=== PATIENT | female | born 1995 | race Caucasian/White ===

== ENCOUNTER → 2020-06-13 16:27 | Outpatient (CLI) | payer BC, SELFPAY ==
[2020-06-13 17:00] LABS: Add Manual Diff / Slide Review NO; Basophils Absolute Auto 0 /uL (0-100); Basophils Percent Auto 0.3 % (0-2); Eosinophils Absolute Auto 200 /uL (0-450); Eosinophils Percent Auto 1.5 % (2-4); Hematocrit 35.3 % (36-46); Lymphocytes Absolute Auto 2100 /uL (1100-4500); Lymphocytes Percent Auto 21.6 % (25-40); Mean Corpuscular HGB Conc 34.1 % (30-36); Mean Corpuscular Hemoglobin 29.5 PG (26-34); Mean Corpuscular Volume 86.5 fL (80-100); Monocytes Absolute Auto 600 /uL (0-900); Monocytes Percent Auto 5.8 % (3-14); Neutrophils Absolute Auto 7000 /uL (1500-7000); Neutrophils Percent Auto 70.8 % (50-75); Platelet Count 342 X10^3/uL (150-400); Red Blood Cell Count 4.08 X10^6/uL (4.0-5.2); White Blood Cell Count 9.8 X10^3/uL (4.5-11.0)
[2020-06-13 17:03] LABS: Appearance Urine UA SL CLOUDY; Bilirubin Urine UA NEGATIVE (NEGATIVE); Color Urine UA YELLOW; Glucose Urine UA NEGATIVE (Negative); Ketones Urine UA TRACE (NEGATIVE); Leukocyte Esterase Urine UA NEGATIVE (NEGATIVE); Nitrite Urine UA NEGATIVE (Negative); Occult Blood Urine UA NEGATIVE (Negative); Protein Urine UA NEGATIVE (Negative); Specific Gravity Urine UA 1.025 (1.000-1.035); Urobilinogen Urine UA 0.2 E.U./dL (0.2)
[2020-06-14 07:39] LABS: RPR Screen Non Reactive (Non Reactive)
[2020-06-14 10:08] LABS: Varicella IgG Antibody <135 index (Immune >165)
[2020-06-14 11:43] LABS: Hepatitis B Surface Antigen NEGATIVE s/c (NEGATIVE); Rubella Antibody IgG 3.7 IU/mL (>15)
[2020-06-14 12:00] LABS: HIV 1 & 2 Ab/Ag 4th Gen Combo NEGATIVE (NEGATIVE); Hep C Virus Ab w/Reflex Quant NEGATIVE s/c (NEGATIVE)
== END ==
PROVIDERS: Referring Provider Obstetrics & Gynecology; Visit Provider Obstetrics & Gynecology
DX: Z34.81 Encounter for supervision of other normal pregnancy, first trimester (principal)
CPT/HCPCS: 36415; 80055; 81003; 86787; 86803; 86850; 86900; 86901; 87086; 87147; 87389

== ENCOUNTER → 2020-07-11 08:20 | Outpatient (CLI) | payer BC, SELFPAY ==
[2020-07-13 20:49] LABS: AFP, Serum 40.6 ng/mL (.); Calc Gestational Age Ultrasound (.); Estriol, Free 1.24 ng/mL (.); Inhibin A, Dimeric 118.01 pg/mL (.); Maternal Ethnicity Caucasian (.); Maternal Weight 111 lbs (.); Number of Fetuses No (.); OSBR Risk 1 IN 10000 (.); Results Report (.); Test Results *Screen Negative* (.); hCG, MoM 1.21 (.); hCG, Serum 50800 mIU/mL (.)
== END ==
PROVIDERS: Referring Provider Obstetrics & Gynecology; Visit Provider Obstetrics & Gynecology
DX: Z34.90 Encounter for supervision of normal pregnancy, unspecified, unspecified trimester (principal); Z3A.16 16 weeks gestation of pregnancy
CPT/HCPCS: 36415; 82105; 82677; 84702; 86336

== ENCOUNTER → 2020-08-08 12:38 | Outpatient (CLI) | payer BC, SELFPAY ==
--- NOTE | 2020-08-08 12:39 | DI.US.S_ITS ---
PROCEDURE: US OB >= 14 WEEKS FETUS INDICATIONS: ANATOMY OUTSIDE/PRIOR DATING DATA: Last menstrual period (LMP): 03/15/2020. LMP-based estimated date of delivery (LISA): 12/21/2019 . First dating scan (date and location): 06/13/2020 . Estimated date of delivery (LISA) from first dating scan: 12/16/2020 . TECHNIQUE: Real-time scanning was performed of the fetus, with image documentation and biometric measurements. Endovaginal scanning: No COMPARISON: [facility], , OB >= 14 WEEKS FETUS, 07/11/2020, 8:11. FINDINGS: General: A single living intrauterine gestation is present. Presentation: Variable. Placenta: Placental position is posterior , without previa. Amniotic fluid index: 12.8 cm, normal range is 5-24 cm. heart rate: 145 beats per minute. Maternal cervical canal: 3.1 cm long. Normal lower limit is 2.5 cm. biometrics: Biparietal diameter: 22 weeks 4 days Head circumference: 21 weeks 6 days Abdominal circumference: 22 weeks Femur length: 20 weeks 6 days Estimated gestational age from initial scan: 21 weeks 3 days Composite gestational age from present scan: 21 weeks 6 days Estimated weight and percentile: 436 g; 53rd percentile Measurement variability for biometric dating: +/- 7 days from 14 weeks to 15 weeks 6 days gestation, +/- 10 days from 16 weeks to 21 weeks 6 days gestation, +/- 2 weeks from 22 weeks to 27 weeks 6 days gestation, +/- 3 weeks for 28 weeks gestation or later. weight reference: 4500 g or EFW >90/95% is considered macrosomia or large for gestational age. EFW <10% is small for gestational age. EFW 5% or less is considered intra-uterine growth restriction. Anatomic survey: Neuro: Ventricles are non-dilated at less than 10 mm. Cisterna magna is normal at 3-11 mm. Cerebellum is normal in size and morphology. Nuchal skin fold: Normal at less than 6 mm between 14-21 weeks gestational age. Face: Nose and lips, facial profile are normal. Spine: No evidence for spina bifida. Heart: 4-chambered heart is present, with normal ventricular outflow tracts. Solitary left ventricular intracardiac focus. Diaphragm: Diaphragm is intact. Stomach: Left-sided stomach is present. Kidneys: No hydronephrosis. Normal is less than 5 mm in 2nd trimester, less than 7 mm in 3rd trimester. Cord: 3-vessel cord has orthotopic insertion. Bladder: Normal in size. Extremities: All 4 extremities identified. IMPRESSION: 1. Single living IUP redemonstrated and interval growth is normal. 2. Echogenic intracardiac focus: 1.4-1.8 fold likelihood of Down syndrome. If isolated finding, consider aneuploidy screening with cell-free DNA. If aneuploidy screen is negative, no further evaluation needed. Dictated by: Babatunde Castorena [facility] Interpreted: Domingo Erickson MD on 08/08/2020 at 15:15 Approved by: Domingo Erickson M.D. on 08/08/2020 at 17:35
== END ==
PROVIDERS: Referring Provider Obstetrics & Gynecology; Visit Provider Obstetrics & Gynecology
DX: Z34.82 Encounter for supervision of other normal pregnancy, second trimester (principal); Z3A.21 21 weeks gestation of pregnancy
CPT/HCPCS: 76811

== ENCOUNTER → 2020-09-12 10:01 | Outpatient (CLI) | payer BC, SELFPAY ==
[2020-09-12 12:09] LABS: Hematocrit 31.4 % (36-46); Hemoglobin 10.5 g/dL (12.0-16.0)
[2020-09-12 12:33] LABS: GTT (PREG) 1 Hour PP 50gm Dose 121 mg/dL (76-139)
== END ==
PROVIDERS: Referring Provider Obstetrics & Gynecology; Visit Provider Obstetrics & Gynecology
DX: Z34.82 Encounter for supervision of other normal pregnancy, second trimester (principal); Z3A.26 26 weeks gestation of pregnancy
CPT/HCPCS: 36415; 82950; 85014; 85018

== ENCOUNTER → 2020-10-10 10:51 | Outpatient (CLI) | payer BC, SELFPAY ==
[2020-10-10 17:09] LABS: Urine N gonorrhoeae NOT DETECTED
[2020-10-10 17:17] LABS: Urine Chlamydia NOT DETECTED
== END ==
PROVIDERS: Visit Provider Obstetrics & Gynecology
DX: Z34.83 Encounter for supervision of other normal pregnancy, third trimester (principal); Z3A.29 29 weeks gestation of pregnancy
CPT/HCPCS: 87491; 87591

== ENCOUNTER → 2020-11-21 11:34 | Outpatient (CLI) | payer BC, SELFPAY ==
[2020-11-22 12:26] LABS: Strep Grp B PCR POS for Grp B Strep
== END ==
PROVIDERS: Visit Provider Obstetrics & Gynecology
DX: Z34.83 Encounter for supervision of other normal pregnancy, third trimester (principal); Z3A.35 35 weeks gestation of pregnancy
CPT/HCPCS: 87653

== ENCOUNTER 2020-12-19 03:27 | Inpatient (IN) | payer BC, OTHER, SELFPAY ==
[2020-12-19 03:58] LABS: Add Manual Diff / Slide Review NO; Basophils Absolute Auto 100 /uL (0-100); Basophils Percent Auto 0.7 % (0-2); Eosinophils Absolute Auto 100 /uL (0-450); Eosinophils Percent Auto 0.8 % (2-4); Hematocrit 37.8 % (36-46); Hemoglobin 12.5 g/dL (12.0-16.0); Lymphocytes Absolute Auto 3100 /uL (1100-4500); Lymphocytes Percent Auto 20.7 % (25-40); Mean Corpuscular Hemoglobin 28.5 PG (26-34); Mean Corpuscular Volume 86.1 fL (80-100); Monocytes Absolute Auto 900 /uL (0-900); Monocytes Percent Auto 6.1 % (3-14); Neutrophils Absolute Auto 10600 /uL (1500-7000); Neutrophils Percent Auto 71.7 % (50-75); Platelet Count 257 X10^3/uL (150-400); Red Blood Cell Count 4.39 X10^6/uL (4.0-5.2); White Blood Cell Count 14.8 X10^3/uL (4.5-11.0)
[2020-12-19] MEDS: LACTATED RINGERS 1,000 ML 100 ML IV (04:05)
[2020-12-19 04:22] LABS: COVID19 -Nasal RAPID Negative (Negative)
[2020-12-19] MEDS: PENICILLIN G POTASSIUM 5,000,000 UNIT in DEXTROSE 5% IN WATER 250 ML IV (04:25)
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
[2020-12-19] MEDS: PENICILLIN G POTASSIUM 3,000,000 UNIT/50 ML FROZ.PIGGY 100 UNIT IV ×2 (07:37→11:26)
--- NOTE | 2020-12-19 12:50 | PM.OBPRVD ---
Labor & Delivery Delivery date: 12/19/20 Intrapartal Events: Prolonged 2nd Stage > 2.5 hours Delivery monitor: external FHT and external uterine Route of delivery: vacuum extraction Indication for instrumentation: maternal exhaustion (More than 3-1/2 hours of pushing) L&D Laceration Description: Perineal - 3rd Degree Delivery repair: vicryl (0 for repair of the rectal sphincter, 2 0 to build up the perineal body) and chromic (3 0 and 4-0) Estimated blood loss (mL): 200 Anesthesia Type: Epidural Narrative: Patient arrived on Labor and delivery in active labor. She received an epidural catheter for pain control. She had spontaneous rupture membranes with meconium-stained fluid. heart tones category 1 to category 2 throughout labor. Patient pushed for over 3-1/2 hours and had not started at so decision was made to assist delivery. Options were reviewed with the patient and the decided to try forceps however the forceps could not be applied appropriately so decision was made to use a vacuum. The vacuum was placed for the the 1st contraction and popped off. The vacuum was replaced for the 2nd contraction and with pushing the delivered over an intact perineum. The baby had a double nuchal cord that was released. With delivery of the shoulder the infant's arm was found to be compound presentation. The was delivered and placed on maternal abdomen. The baby was taken after the 1st minute to the warmer just for precaution so the cord was clamped, cut, and cord bloods obtained. The baby was found to be doing well so was returned to maternal abdomen. The placenta delivered spontaneously, intact, with 3 vessels. Patient was found to have a third-degree tear. The rectal sphincter was repaired with 0 Vicryl suture in four quadrants. A finger was placed in the rectum and there was no evidence of a 4th degree degree tear and no sutures in the rectum. The perineal body was built up with 2 0 Vicryl suture. The tear was then repaired with 3-0 chromic suture in the usual 2 layer fashion. Estimated blood loss 200 cc. Both infant mother doing well. Baby 1: gender: Male Presentation: vertex Position: Right Occiput Transverse Placenta delivery description: Spontaneous Cord Vessel Description: Nuchal Cord (X2) score (1 min): 9 score (5 min): 9 weight: 7 lb 14 oz Plan for aftercare: Routine care
[2020-12-19] MEDS: IBUPROFEN 600 MG TABLET PO ×2 (13:43→20:22)
[2020-12-19] MEDS: ACETAMINOPHEN 325 MG TABLET 650 MG PO ×2 (13:43→20:22)
[2020-12-19] MEDS: DOCUSATE 100 MG CAPSULE PO (20:22)
[2020-12-20] MEDS: ACETAMINOPHEN 325 MG TABLET 650 MG PO ×2 (01:47→08:38)
[2020-12-20] MEDS: IBUPROFEN 600 MG TABLET PO ×2 (01:47→08:39)
[2020-12-20 06:59] LABS: Add Manual Diff / Slide Review NO; Basophils Absolute Auto 100 /uL (0-100); Basophils Percent Auto 0.5 % (0-2); Eosinophils Absolute Auto 100 /uL (0-450); Eosinophils Percent Auto 0.4 % (2-4); Hematocrit 32.8 % (36-46); Hemoglobin 10.9 g/dL (12.0-16.0); Lymphocytes Absolute Auto 2300 /uL (1100-4500); Lymphocytes Percent Auto 12.3 % (25-40); Mean Corpuscular HGB Conc 33.3 % (30-36); Mean Corpuscular Hemoglobin 28.7 PG (26-34); Mean Corpuscular Volume 86.2 fL (80-100); Monocytes Absolute Auto 700 /uL (0-900); Monocytes Percent Auto 4.1 % (3-14); Neutrophils Absolute Auto 15100 /uL (1500-7000); Neutrophils Percent Auto 82.7 % (50-75); Platelet Count 222 X10^3/uL (150-400); Red Blood Cell Count 3.81 X10^6/uL (4.0-5.2); Red Cell Distribution Width 15.1 % (11.6-14.8); White Blood Cell Count 18.3 X10^3/uL (4.5-11.0)
[2020-12-20] MEDS: DOCUSATE 100 MG CAPSULE PO (08:39)
[2020-12-20 13:40] VITALS: BP 108/70; PULSE 77; RESP 16; TEMP 36.5
[2020-12-20] MEDS: MEASLES,MUMPS,RUBELLA VACC/PF 0.5 ML VIAL SUBCUT (14:28)
--- NOTE | 2020-12-21 06:40 | PM.OBDS.1 ---
Discharge Providers Provider Date of admission: 12/19/20 03:27 Discharge Date: 12/20/20 Primary care physician: Doctor Kimberly MD Consults: 12/20/20 12:47 Consult to [employer] Developer Routine Comment: Discharge provider: Iman Melo MD Summary Hospital Course Date Patient Seen: 12/20/20 Time Patient Seen: 11:30 Diagnoses: 39 weeks gestation Spontaneous rupture of membrane Meconium-stained amniotic fluid Epidural analgesia Vacuum assisted vaginal delivery Third-degree laceration repair Hospital Course: Patient is a 25-year-old 1 para 1 who presented in active labor on December 19, 2020. She received an epidural for pain management. She had spontaneous rupture of membranes with meconium-stained amniotic fluid. She progressed very slowly to complete dilation. She pushed for 3+ hours. A vacuum was applied due to maternal exhaustion. She had a third-degree laceration which was repaired. Her post course was unremarkable and she is discharged home on day # 1. Peripartum Data Infant Delivery Method: Assisted Delivery Laceration Description: Perineal - 3rd Degree Episiotomy description: None Procedures: Epidural analgesia Vacuum assisted vaginal delivery Third-degree laceration repair complications: none 1: Gender: Male Disposition of : home Status at Discharge Cognitive/behavioral status at discharge: oriented Functional status at discharge: independent ambulation Overall status at discharge: patient is progressing back to baseline Time Spent with Patient Time attestation: Total time spent providing and/or coordinating discharge services: Time spent: Less than 30 minutes Objective Labs Result Diagrams: 12/20/20 06:45 Labs: Laboratory Results - last 24 hr 12/20/20 06:45 WBC 18.3 H RBC 3.81 L Hgb 10.9 L Hct 32.8 L MCV 86.2 MCH 28.7 MCHC 33.3 RDW 15.1 H Plt Count 222 Neut % (Auto) 82.7 H Lymph % (Auto) 12.3 L [place] % (Auto) 4.1 Eos % (Auto) 0.4 L Baso % (Auto) 0.5 Neut # (Auto) 04480 H Lymph # (Auto) 2300 [place] # (Auto) 700 Eos # (Auto) 100 Baso # (Auto) 100 Exam Narrative Exam Narrative: Generally: Patient walking around in room, no acute distress Fundus: Firm at U -1 Extremities: Negative Homans, no edema Discharge Plan Discharge Plan Patient Disposition: Home Provider Discharge Comment: Call with fever, chills, or bleeding vaginally more than a pad in an hour Ibuprofen 600 mg every 6 hours as needed Tylenol 650 mg every 6 hours as needed Stool softeners as needed Discharge orders & Medications Prescriptions: Continued prenat.vits,kory,wfl-knnn-zkfne Tablet 1 tab PO DAILY RF: 0 Discontinued omeprazole 20 mg Capsule,Delayed Release(Dr/Ec) 20 mg PO DAILY RF: 0 Follow up/Referrals: Iman Melo MD [Physician] - 6 Weeks (Appointment with Sunday, February 11 at 11:00 AM for check.) Diet/Activity/Treatments Diet: Regular Activity: Nothing in the vagina for 6 weeks Skin/Wound/Dressing Care Report to your healthcare provider any signs of infection, such as:: chills, fever, increased pain and unusual drainage Visit Report/Discharge Packet Instructions: DI for Labor and Delivery, Vaginal Discharge Data Primary Care Provider: Miscellaneous,Doctor
== END 2020-12-20 15:15 | disposition home or self-care (01) | DRG 768 ==
PROVIDERS: Specialist; Admitting Provider Obstetrics & Gynecology; Referring Provider Obstetrics & Gynecology; Visit Provider Obstetrics & Gynecology
DX: O99.824 Streptococcus B carrier state complicating childbirth (principal); Z37.0 Single live birth; Z3A.39 39 weeks gestation of pregnancy; O75.81 Maternal exhaustion complicating labor and delivery; O69.81X0 Labor and delivery complicated by cord around neck, without compression, not applicable or unspecified; O32.6XX0 Maternal care for compound presentation, not applicable or unspecified; O70.20 Third degree perineal laceration during delivery, unspecified; O77.0 Labor and delivery complicated by meconium in amniotic fluid
CPT/HCPCS: 01967; 36415; 59050; 59400; 59409; 85025; 86850; 86900; 86901; 87635; C9803; G0379; J2540

== ENCOUNTER → 2022-07-15 09:11 | Outpatient (CLI) | payer BC, SELFPAY ==
[2022-07-15 09:39] LABS: Add Manual Diff / Slide Review NO; Basophils Absolute Auto 0 /uL (0-100); Basophils Percent Auto 0.4 % (0-2); Eosinophils Absolute Auto 100 /uL (0-450); Eosinophils Percent Auto 0.6 % (2-4); Hematocrit 34.5 % (36-46); Hemoglobin 11.7 g/dL (12.0-16.0); Lymphocytes Absolute Auto 1700 /uL (1100-4500); Mean Corpuscular HGB Conc 33.9 % (30-36); Mean Corpuscular Hemoglobin 29.2 PG (26-34); Mean Corpuscular Volume 86.1 fL (80-100); Monocytes Absolute Auto 400 /uL (0-900); Monocytes Percent Auto 4.1 % (3-14); Neutrophils Absolute Auto 6800 /uL (1500-7000); Neutrophils Percent Auto 75.9 % (50-75); Platelet Count 307 X10^3/uL (150-400); Red Blood Cell Count 4.01 X10^6/uL (4.0-5.2); Red Cell Distribution Width 13.3 % (11.6-14.8)
[2022-07-15 10:48] LABS: Hepatitis B Surface Antigen NEGATIVE s/c (NEGATIVE); Rubella Antibody IgG 22.2 IU/mL (>15)
[2022-07-15 11:02] LABS: HIV 1 & 2 Ab/Ag 4th Gen Combo NEGATIVE (NEGATIVE); Hep C Virus Ab w/Reflex Quant NEGATIVE s/c (NEGATIVE)
[2022-07-16 07:21] LABS: Varicella IgG Antibody <135 index (Immune >165)
[2022-07-17 05:36] LABS: RPR Screen Non Reactive (Non Reactive)
[2022-07-18 20:07] LABS: AFP, Serum 25.3 ng/mL (.); Estriol, Free 0.83 ng/mL (.); Inhibin A, Dimeric 119.69 pg/mL (.); Inhibin A, MoM 0.66 (.); Maternal Ethnicity Caucasian (.); Maternal Weight 120 lbs (.); Number of Fetuses No (.); OSBR Risk 1 IN 10000 (.); Results Report (.); Test Results *Screen Negative* (.); hCG, MoM 0.68 (.); hCG, Serum 30318 mIU/mL (.)
== END ==
PROVIDERS: PCP Nurse Practitioner Family; Referring Provider Obstetrics & Gynecology; Visit Provider Obstetrics & Gynecology
DX: Z34.82 Encounter for supervision of other normal pregnancy, second trimester (principal); Z3A.16 16 weeks gestation of pregnancy
CPT/HCPCS: 36415; 80055; 82105; 82677; 84702; 86336; 86787; 86803; 86850; 86900; 86901; 87389

== ENCOUNTER → 2022-08-12 09:53 | Outpatient (CLI) | payer BC, SELFPAY ==
[2022-08-12 14:17] LABS: Urine Chlamydia NOT DETECTED; Urine N gonorrhoeae NOT DETECTED
== END ==
PROVIDERS: PCP Nurse Practitioner Family; Visit Provider Obstetrics & Gynecology
DX: Z34.82 Encounter for supervision of other normal pregnancy, second trimester (principal); Z3A.20 20 weeks gestation of pregnancy
CPT/HCPCS: 87086; 87491; 87591

== ENCOUNTER → 2022-08-12 14:15 | Outpatient (CLI) | payer BC, SELFPAY ==
--- NOTE | 2022-08-12 14:16 | DI.US.S_ITS ---
PROCEDURE: US OB >= 14 WEEKS FETUS INDICATIONS: ANATOMY OUTSIDE/PRIOR DATING DATA: Last menstrual period (LMP): 03/20/2022 LMP-based estimated date of delivery (LISA): 12/25/2022. First dating scan (date and location): 05/30/2022. Estimated date of delivery (LISA) from first dating scan: 12/30/2022. TECHNIQUE: Real-time scanning was performed of the fetus, with image documentation and biometric measurements. COMPARISON: None. FINDINGS: General: A single living intrauterine gestation is present. Presentation: Variable. Placenta: Placental position is posterior , without previa. Amniotic fluid index: 10.9 cm, normal range is 5-24 cm. Single deepest vertical pocket is 3.3 cm. heart rate: 144 beats per minute. Maternal cervical canal: 4.3 cm long. Normal lower limit is 2.5 cm. biometrics: Biparietal diameter: 19 weeks 4 days Head circumference: 19 weeks 6 days Abdominal circumference: 20 weeks 5 days Femur length: 19 weeks 6 days Clinically estimated gestational age: 20 weeks 5 days Composite gestational age from present scan: 20 weeks 0 days Estimated weight and percentile: 340 g; 21st percentile Anatomic survey: Neuro: Ventricles are non-dilated at less than 10 mm. Cisterna magna is normal at 3-11 mm. Cerebellum demonstrates normal morphology measuring up to 18.1 mm which is lower limits of normal. Nuchal skin fold: Normal at less than 6 mm between 14-21 weeks gestational age. Face: Nose and lips, facial profile are normal. Spine: Sacral spine not well seen. Heart: 4-chambered heart is present, with normal ventricular outflow tracts. Diaphragm: Diaphragm is intact. Stomach: Left-sided stomach is present. Kidneys: No hydronephrosis. Normal is less than 5 mm in 2nd trimester, less than 7 mm in 3rd trimester. Cord: 3-vessel cord has orthotopic insertion. Bladder: Normal in size. Extremities: All 4 extremities identified. IMPRESSION: 1. Single living IUP redemonstrated and interval growth is normal. 2. The sacral spine is not well visualized and the transverse cerebellar measurement is near the lower limits of normal for age. Anatomic survey otherwise is normal and short-term follow-up ultrasound recommended. We strive to produce accurate, complete, and clear reports of imaging services. To assist us in improving patient care, this report was composed using standard report templates and voice recognition software. Therefore, it may contain abnormal punctuation, insertions and/or omissions. Occasional wrong-word or sound-alike substitutions may occur. Though we review the report and make efforts to correct it, we do recommend that the report be read carefully in proper context to recognize any text inaccuracies. Dictated by: Babatunde MIR Interpreted: Brooklyn Chandra MD on 08/13/2022 at 8:56 Transcribed by: GIAN on 08/13/2022 at 9:08 Approved by: Brooklyn Chandra M.D. on 08/13/2022 at 13:19
== END ==
PROVIDERS: PCP Nurse Practitioner Family; Referring Provider Obstetrics & Gynecology; Visit Provider Obstetrics & Gynecology
DX: Z34.82 Encounter for supervision of other normal pregnancy, second trimester (principal); Z3A.20 20 weeks gestation of pregnancy
CPT/HCPCS: 76811; 87086; 87491; 87591

== ENCOUNTER → 2022-08-26 13:38 | Outpatient (CLI) | payer BC, SELFPAY ==
--- NOTE | 2022-08-26 13:38 | DI.US.S_ITS ---
PROCEDURE: US OB FOLLOW UP INDICATIONS: RE-EVAL SACRAL SPINE, CEREBELLUM OUTSIDE/PRIOR DATING DATA: Last menstrual period (LMP): 03/20/2022. LMP-based estimated date of delivery (LISA): 12/25/2022. First dating scan (date and location): 05/30/2022. Estimated date of delivery (LISA) from first dating scan: 12/30/2022. The calculations are made using the clinical LISA of 12/25/2022. TECHNIQUE: Real-time scanning was performed of the fetus, with image documentation. Endovaginal scanning: Not performed COMPARISON: [facility], OB >= 14 WEEKS FETUS, 08/12/2022, 14:25. FINDINGS: A single living intrauterine gestation is present. Presentation: Vertex. Placenta: Placental position is posterior, without previa. Amniotic fluid index: 16.2 cm, normal range is 5-24 cm. Single deepest vertical pocket is 4.8 cm. heart rate: 150 beats per minute. Maternal cervical canal: 4.0 cm long. Normal lower limit is 2.5 cm. Clinically estimated gestational age: 22 weeks 5 days sacral spine visualized and appears within normal limits. Transverse cerebellar diameter of 21.6 mm, increased from 18.1 mm. Clinical significance of this finding/diameter is uncertain. IMPRESSION: 1. Single living intrauterine in vertex presentation. 2. sacral spine visualized and appears within normal limits. Dictated by: Javi Richard M.D. on 08/27/2022 at 13:13 Approved by: Javi Richard M.D. on 08/27/2022 at 13:18
== END ==
PROVIDERS: PCP Nurse Practitioner Family; Referring Provider Obstetrics & Gynecology; Visit Provider Obstetrics & Gynecology
DX: Z3A.22 22 weeks gestation of pregnancy; Z36.2 Encounter for other antenatal screening follow-up
CPT/HCPCS: 76816

== ENCOUNTER → 2022-11-20 14:19 | Outpatient (CLI) | payer BC, SELFPAY ==
[2022-11-20 17:04] LABS: GTT (PREG) 1 Hour PP 50gm Dose 158 mg/dL (76-139)
== END ==
PROVIDERS: PCP Nurse Practitioner Family; Referring Provider Obstetrics & Gynecology; Visit Provider Obstetrics & Gynecology
DX: Z34.82 Encounter for supervision of other normal pregnancy, second trimester (principal); Z3A.26 26 weeks gestation of pregnancy
CPT/HCPCS: 36415; 82950; 85014; 85018

== ENCOUNTER → 2022-11-26 08:00 | Outpatient (CLI) | payer BC, SELFPAY ==
[2022-11-26 09:50] LABS: Glucose Fasting Gestational 82 mg/dL (76-95)
[2022-11-26 10:24] LABS: Glucose 1 Hour Gest 180 mg/dL (76-180)
[2022-11-26 11:20] LABS: Glucose Tol Interp,Gestational INTERPRETATION
[2022-11-26 12:53] LABS: Glucose 2 Hour Gest 139 mg/dL (76-155)
[2022-11-26 12:55] LABS: Glucose 3 Hour Gest 112 mg/dL (76-140)
== END ==
PROVIDERS: PCP Nurse Practitioner Family; Referring Provider Obstetrics & Gynecology; Visit Provider Obstetrics & Gynecology
DX: R73.09 Other abnormal glucose (principal)
CPT/HCPCS: 36415; 82951; 82952

== ENCOUNTER → 2022-12-04 09:00 | Outpatient (CLI) | payer BC, SELFPAY ==
[2022-12-05 08:06] LABS: Strep Grp B PCR NEG for Grp B Strep
== END ==
PROVIDERS: PCP Nurse Practitioner Family; Visit Provider Obstetrics & Gynecology
DX: Z34.83 Encounter for supervision of other normal pregnancy, third trimester (principal); Z3A.37 37 weeks gestation of pregnancy
CPT/HCPCS: 87653

== ENCOUNTER 2022-12-10 18:01 | Inpatient (IN) | payer BC, SELFPAY ==
[2022-12-10] MEDS: ONDANSETRON 4 MG/2 ML INJ IV (18:40)
[2022-12-10] MEDS: OXYTOCIN PREMIX 30 UNIT/500 ML PLAST..BAG IV (18:50)
[2022-12-10] MEDS: OXYTOCIN PREMIX 30 UNIT/500 ML PLAST..BAG 200 UNIT IV (18:50)
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
--- NOTE | 2022-12-10 18:53 | PM.OBPRVD ---
Labor & Delivery Delivery date: 12/10/22 Intrapartal Events: Precipitous Labor < 3 hours Cervical ripening method: none Induction method: none Delivery augmentation: rupture of membranes Delivery monitor: external FHT and external uterine Route of delivery: Episiotomy description: None L&D Laceration Description: None Quantitative Blood Loss: 50 Anesthesia Type: Spinal Complications: None Narrative: Patient complete and pushed with 3 contractions. At 6:40 p.m., a live female infant delivered spontaneously in the BAN presentation, over an intact perineum. The remainder of the body delivered without difficulty and was placed on mom's abdomen. After the cord stopped pulsing, the cord was double clamped and cut. Cord bloods were obtained. Pitocin was given in the IV fluids. The placenta delivered intact with a three-vessel cord at 6:46 p.m.. Fundus was massaged to firm. No lacerations noted. Apgars 9 at 1 minute and 9 at 5 minutes. weight 6 lb 12.2 oz. . Spinal analgesia. Mom and stable to recovery. [place] Baby 1: Infant gender: Female Presentation: vertex Position: Right Occiput Anterior Placenta delivery description: Spontaneous Cord Vessel Description: 3 Vessels and Clamped/Cut (After the cord stopped pulsing) score (1 min): 9 score (5 min): 9 weight: 6 lb 12.2 oz Plan for aftercare: Routine care
[2022-12-10 20:04] LABS: Add Manual Diff / Slide Review NO; Basophils Absolute Auto 0 /uL (0-100); Basophils Percent Auto 0.2 % (0-2); Eosinophils Absolute Auto 0 /uL (0-450); Eosinophils Percent Auto 0.1 % (2-4); Hematocrit 35.4 % (36-46); Hemoglobin 11.8 g/dL (12.0-16.0); Lymphocytes Absolute Auto 1400 /uL (1100-4500); Lymphocytes Percent Auto 7.2 % (25-40); Mean Corpuscular HGB Conc 33.2 % (30-36); Mean Corpuscular Hemoglobin 28.4 PG (26-34); Mean Corpuscular Volume 85.5 fL (80-100); Monocytes Absolute Auto 800 /uL (0-900); Neutrophils Absolute Auto 17100 /uL (1500-7000); Neutrophils Percent Auto 88.5 % (50-75); Platelet Count 263 X10^3/uL (150-400); Red Blood Cell Count 4.14 X10^6/uL (4.0-5.2); Red Cell Distribution Width 14.3 % (11.6-14.8); White Blood Cell Count 19.4 X10^3/uL (4.5-11.0)
[2022-12-10] MEDS: IBUPROFEN 600 MG TABLET PO (20:36)
[2022-12-10] MEDS: LANOLIN OINT 7 GM 1 APPLIC TOP (22:05)
[2022-12-10 22:39] VITALS: BP 113/64
[2022-12-11 06:46] LABS: Hematocrit 32.7 % (36-46); Hemoglobin 10.8 g/dL (12.0-16.0)
[2022-12-11] MEDS: IBUPROFEN 600 MG TABLET PO (09:12)
[2022-12-11] MEDS: PRENATAL VIT,CALC/IRON/FOLIC 1 TABLET 1 TAB PO (09:13)
[2022-12-11] MEDS: DOCUSATE 100 MG CAPSULE PO (09:13)
[2022-12-11] MEDS: LANOLIN OINT 7 GM 1 APPLIC TOP (13:55)
--- NOTE | 2022-12-13 16:40 | PM.OBDS.1 ---
Discharge Providers Provider Date of admission: 12/10/22 18:01 Discharge Date: 12/11/22 Primary care physician: TAMMI Sinclair Consults: 12/10/22 18:16 Consult to Anesthesiology Urgent Comment: Consulting Provider: Anesthesiologist Reason for consultation: Epidural Discharge provider: Iman Melo MD Summary Hospital Course Date Patient Seen: 12/11/22 Time Patient Seen: 07:30 Diagnoses: 38-,2/7 weeks gestation Precipitous labor and delivery Hospital Course: Patient is a 27-year-old 3 para 2 who presented on December 10, 2022 by helicopter from [place] due to active labor. She was found to be 8-9 cm. Artificial rupture of membranes was performed when she progressed to complete. She pushed with 3 contractions and had a spontaneous vaginal delivery without complication. No lacerations. Her course was unremarkable. She was discharged home on December 11, 2022. She is to follow-up in 6 weeks. Peripartum Data Infant Delivery Method: Natural Vaginal Laceration Description: None Episiotomy description: None Procedures: Spinal analgesia Spontaneous vaginal delivery complications: none 1: Gender: Female Disposition of : home Status at Discharge Cognitive/behavioral status at discharge: oriented Functional status at discharge: independent ambulation Overall status at discharge: patient is progressing back to baseline Time Spent with Patient Time attestation: Total time spent providing and/or coordinating discharge services: Time spent: Less than 30 minutes Objective Labs 12/11/22 06:30 Exam Narrative Exam Narrative: Generally: Patient lying in bed, holding infant, no acute distress Fundus: Firm at U -2 Extremities: No edema, negative Homans Discharge Plan Discharge Plan Patient Disposition: Home Provider Discharge Comment: Call with fever, chills, or bleeding vaginally more than a pad in an hour Continue vitamins Ibuprofen 600 mg every 6 hours as needed for cramping Discharge orders & Medications Prescriptions: Continued prenat.vits,kory,[id number] Tablet 1 tab PO DAILY Follow up/Referrals: Iman Melo MD [Physician] - ( 6 week visit w/ Dr. Melo: , January 22 @ 3:30pm) Diet/Activity/Treatments Diet: Regular Activity: Nothing in the vagina for 6 weeks Skin/Wound/Dressing Care Report to your healthcare provider any signs of infection, such as:: chills, fever, increased pain and unusual drainage Visit Report/Discharge Packet Instructions: DI for Labor and Delivery, Vaginal Stand Alone Forms: Discharge: Care, Patient Portal/API, Stroke Signs & Symptoms Discharge Data Primary Care Provider: Ysabel Marquez Discharges patient from system. Discharge Date/Time: 12/11/22 15:30
== END 2022-12-11 15:30 | disposition home or self-care (01) | DRG 807 ==
PROVIDERS: Admitting Provider Obstetrics & Gynecology; PCP Nurse Practitioner Family; Referring Provider Obstetrics & Gynecology; Visit Provider Obstetrics & Gynecology
DX: O62.3 Precipitate labor (principal); Z37.0 Single live birth; Z3A.38 38 weeks gestation of pregnancy
CPT/HCPCS: 36415; 59050; 59400; 85014; 85018; 85025; 86850; 86900; 86901; G0379; J2405; J2590